=== PATIENT | male | born 1995 | race Caucasian/White ===

== ENCOUNTER 2022-01-07 11:53 | Emergency (ER) | payer MEDICAID, OTHER ==
[~2022-01-07] VITALS: Ht 167.6 cm; Wt 89.0 kg
[2022-01-07] MEDS ORDERED: KETOROLAC 30MG/ML VIAL IV STA (12:03)
[2022-01-07] MEDS ORDERED: ONDANSETRON HCL 4MG/2ML INJ IV STA (12:03)
[2022-01-07] MEDS ORDERED: FAMOTIDINE 20MG/2ML VIAL IV STA (12:03)
[2022-01-07] MEDS ORDERED: SODIUM CHLORIDE 0.9% 1,000 ML IV ONE (12:15)
[2022-01-07 13:39] VITALS: BP 133/88
[2022-01-07 14:32] LABS: CHLORIDE 104 mEq/L (98-107)
[2022-01-07] MEDS ORDERED: MORPHINE SULFATE 4 MG/ML CPJ (NOT FOR IM USE) IV ONE (15:15)
[2022-01-07 15:34] LABS: HEMATOCRIT. 44.7 % (42.0-52.0); HEMOGLOBIN. 15.6 g/dL (14.0-18.0); MEAN CORPUSCULAR HEMOGLOBIN 31.8 pg (28.0-32.0); MEAN CORPUSCULAR VOLUME 90.8 fL (80.0-94.0); MEAN PLATELET VOLUME 9.8 fl (7.4-10.4); PLATELET 185 x1000/uL (130-400); RED BLOOD CELL COUNT 4.92 mill/uL (4.7-6.1); RED CELL DISTRIBUTION WIDTH 13.1 % (11.6-14.6)
[2022-01-07 17:00] LABS: PLATELET ESTIMATE NORMAL
[2022-01-07] MEDS ORDERED: TOPUD MT (17:07)
[2022-01-07] MEDS ORDERED: MAG-55 MT (17:07)
[2022-01-07] MEDS ORDERED: AMOX-424 MT (17:07)
== END 2022-01-07 17:33 | disposition home or self-care (01) ==
LOC: ER 12:28
DX: K80.50 Calculus of bile duct without cholangitis or cholecystitis without obstruction (principal); R11.10 Vomiting, unspecified; K57.92 Diverticulitis of intestine, part unspecified, without perforation or abscess without bleeding; Z87.19 Personal history of other diseases of the digestive system
CPT/HCPCS: 36415; 74176; 76705; 80053; 83690; 85025; 96361; 96374; 96375; 99285; J1885; J2270; J2405; J3490; J7030